=== PATIENT | female | born 2000 | race Caucasian/White ===

== ENCOUNTER 2024-08-27 00:50 | Emergency (ER) | payer MEDICAID, SELFPAY ==
[2024-08-27 00:56] VITALS: PULSE 83; RESP 18; TEMP 36.4; O2SAT 97
[2024-08-27 00:59] VITALS: BP 133/79
--- NOTE | 2024-08-27 01:04 | ED.GENADUL_ITS ---
Discharge Plan Disposition Patient Disposition: Home Condition: Good Discharge Details Clinical Impression: Cellulitis of thigh ED Provider: Yosef Ahumada [place] Meds and New Rx's Prescriptions: New cephalexin 500 mg capsule 500 mg PO Q8H Qty: 17 0RF Continued sertraline .ROUTE Discharge Instructions Instructions: Cellulitis (Skin Infection), Adult ED Additional Instructions: You were seen for what appears to be a localized skin infection which should improve with antibiotics. Please take 1 tablet 3 times a day for the next week. Follow-up with primary care. May ice the area on and off to help with pain and swelling and may use acetaminophen or ibuprofen as needed. Return to ED for any significant worsening of pain or redness, spiking fever, other concerns. HPI General Mode of arrival: ambulatory . Date/Time Provider Initiated Documentation: 08/27/24 01:04 . Limitations to Documentation: no limitations . Information obtained by: patient and RN notes reviewed . HPI Narrative: Patient presents to ED with pain and swelling in the right lateral thigh. Patient reports that this morning it initially started out a little itchy and raised but not painful. Does not recall any insect bite or stings or other injury. Over the course of today and into tonight it has become painful and larger, more swollen. Denies any other symptoms. She has had no fevers or sweats. Denies any significant past medical history. Denies any allergies. Related Data Home Medications ?Medication ?Instructions ?Recorded ?Confirmed cephalexin 500 mg capsule 500 mg PO Q8H #17 caps 08/27/24 sertraline .ROUTE 08/27/24 Previous Rx's ?Medication ?Instructions ?Recorded cephalexin 500 mg capsule 500 mg PO Q8H #17 caps 08/27/24 Allergies Allergy/AdvReac Type Severity Reaction Status Date / Time No Known Allergies Allergy Verified 08/27/24 01:09 General Stated Complaint: RashLesion PHILLIP: 4 Review of Systems Narrative: Per HPI Exam Narrative Exam Narrative: Const: WDWN female in NAD. VS per triage. HEENT: NC/AT. Normal facial exam. Neck: Supple. Trachea midline. Lungs: Normal respiratory effort. Neuro: A+O x 3. Normal speech, mentation, gait. Cranial nerves II - XII grossly intact. No gross motor or sensory deficit. Ext: No C/C/E. Skin: On the proximal lateral right thigh there is a 2 x 5 cm oval, raised, demarcated, erythematous patch which is tender. There is no fluctuance. Course Vital Signs Vital signs: Vital Signs Temperature 97.6 F 08/27/24 00:56 Pulse 83 08/27/24 00:56 Respiratory Rate 18 08/27/24 00:56 Pulse Oximetry 97 08/27/24 00:56 Temperature 97.6 F 08/27/24 00:56 Temperature Source Oral 08/27/24 00:56 Pulse 83 08/27/24 00:56 Respiratory Rate 18 08/27/24 00:56 Respiratory Effort Normal 08/27/24 00:58 Blood Pressure 133/79 08/27/24 00:59 Pulse Oximetry 97 08/27/24 00:56 Oxygen Delivery Method Room Air 08/27/24 00:56 Oxygen Flow Rate 0 08/27/24 00:56 Medical Decision Making Patient presenting to ED with a raised, erythematous, well-demarcated, tender patch in the right proximal lateral thigh. Denies any injury, sting, bite. There is no fluctuance and this is not an abscess but is likely localized cellulitis, given the raised border consider strep. She looks well otherwise. Will start on cephalexin and have her follow-up with primary care. Return precautions discussed. PFSH All Active Problems Cellulitis of thigh (Acute) Social History Smoking risk assessment performed?: No Alcohol Intake: current Alcohol Intake frequency: a few times a month Substance use type: marijuana
[2024-08-27] MEDS: Cephalexin 500 MG CAP, 4 CAPS/BTL PO (01:20)
== END 2024-08-27 01:20 | disposition home or self-care (01) ==
LOC: ER 01:37
PROVIDERS: Emergency Provider Emergency Medicine; PCP Family Medicine
DX: L03.115 Cellulitis of right lower limb
CPT/HCPCS: 99283